=== PATIENT | male | born 1985 | race African-American/Black ===

== ENCOUNTER 2016-12-04 11:50 | Day surgery (SDC) | payer MEDICAID ==
[~2016-12-04] VITALS: Ht 180.3 cm; Wt 83.9 kg
[~2016-12-04 11:50] MED LIST: ACETAMINOPHEN325 MG PO; ADVIL200 MG PO; ASPIRIN EC81 M1 PO; BACTRIM DS TABL1 TAB PO; BENADRYL50 MG PO; CEFAZOLIN2 GM/50 ML IV; CELEXA20 MG PO; COLACE100 MG PO; DILAUD1MGAMP IV; DILAUDID2 MG PO; DILAUDID8 MG PO; DOXYCYCLINE HY100 M2 PO; ELIQUIS2.5 MG PO; FOLIC ACID1 MG PO; HEPARIN SOD5000 U/ML IV; HYDROXYUREA500 MG PO; KEFLEX500 MG PO; LEVAQUIN750 MG PO; LISINOPRIL5 MG NG; LISINOPRIL5 MG PO; MILK OF MAGNESI30 ML GT; MOBIC7.5 MG PO; MS CONTIN30 MG PO; NALOXONE HC0.4 MG/M2 IV; NEURONTIN 300300 MG PO; NYSTATIN15 GM TOPICAL; OXYCODONE HCL10 MG PO; PERCOCET 10/3251 TA1 PO; REMERON15 MG PO; RESTORIL15 MG; RESTORIL15 MG PO; RIFADIN300 MG PO; ROCEPHIN 2 GM/D52 G1 IV; SALINE FLUSH10 ML IV; SENNA8.6 MG PO; TOPROL XL100 MG PO; TOPROL XL50 MG PO; ULTRAM50 MG PO; VANCOMYCIN 1 GM/1 G1 IV; VIBRAMYCIN 100100 MG PO; ZOFRAN4 MG PO; ZOSYN 3.3753.375 G1 IV; [UNRECOGNIZED DRUG - OTHER]
[2016-12-04 13:40] VITALS: BP 135/78; Ht 180.3 cm; Wt 83.9 kg
[2016-12-04 14:21] LABS: BASOPHILS 0.3 % (0.0-2.0); EOSINOPHILS 1.5 % (0-7); HEMATOCRIT 31.5 % (42.0-54.0); HEMOGLOBIN 10.5 g/dL (13.5-17.5); IMMATURE GRANULOCYTES 0.4 % (0-5); LYMPHOCYTES 28.3 % (15-50); MCH 32.5 pg (26.0-34.0); MCHC 33.3 g/dL (31.0-37.0); MCV 97.5 fL (80.0-100.0); MONOCYTES 20.7 % (2-11); NEUTROPHILS 48.8 % (40-80); PLATELET COUNT 243 10x3/uL (130-400); RBC 3.23 10x6/uL (4.20-6.10); RDW 16.1 % (11.5-14.5); WBC 8.9 10x3/uL (4.8-10.8)
[2016-12-04] MEDS ORDERED: DILAUDID4 MG PO (15:48)
--- NOTE | 2016-12-04 17:40 | NUR ---
AMBULATED TO BATHROOM TO VOID LARGE AMOUNT IN TOILET, RIGHT WRIST PIV DC'D WITH TIP INTACT, PATIENT DRESSING IN PERSONAL CLOTHING
--- NOTE | 2016-12-04 18:00 | NUR ---
DISCHARGE INSTRUCTIONS REVIEWED WITH PATIENT. DISCHARGED HOME VIA WHEELCHAIR TO PRIVATE VEHICLE WITH MOTHER
--- NOTE | 2016-12-18 18:23 | OP ---
PATIENT NAME: MARVEL KHAN MEDICAL RECORD: [id number] :81 LOCATION:D.OPS ADMISSION DATE: SURGEON: MARY WILLINGHAM MD DATE OF OPERATION: 12/04/2016 PREOPERATIVE DIAGNOSIS: Open wound of the left hip. POSTOPERATIVE DIAGNOSIS: Open wound of the left hip. PROCEDURE: 1. Excisional debridement of open wound of the left hip to include skin, subcutaneous tissue, portions of fascia as well as a retained Ethibond. 2. Wound VAC application. OPERATIVE SUMMARY IN DETAIL: After obtaining the appropriate preoperative orthopedic surgery consents as well as anesthetic consultation, evaluation and clearance, the patient was brought to the operating room and placed on the operating table in supine position. After adequate general laryngeal mask was administered, the patient was placed in a right lateral decubitus position. All pressure points were well padded to include down leg peroneal nerve pad as well as axillary roll. The hip was prepped and draped in routine sterile fashion. The area of the hip was cultured and curettaged as well as a scalpel was used for excisional debridement of the deep portions as listed above. At the very base of the wound was found a 5-0 Ethibond. This was removed in its entirety. Further curettage was followed by irrigation. Wound VAC was then molded in place at 125 mm of continuous suction under medium intensity. The patient was awakened, taken to recovery room in stable condition. All final needle and sponge counts were correct. TRANSINT:[id number] Voice Confirmation ID: [id number] DOCUMENT ID: [id number] MARY WILLINGHAM MD at 1823 CC: [id number] DICTATION DATE: 12/14/16 1436 MANAGEMENT DEPARTMENT CHAIR: 12/14/16 1655 [facility] 12/04/16 [place] [address]
== END 2016-12-04 18:00 | disposition home or self-care (01) ==
LOC: D.OPS 11:50 → D.PAN 14:30 → D.OPS 18:00
PROVIDERS: Anesthesiology
DX: S71.002A Unspecified open wound, left hip, initial encounter (principal)

== ENCOUNTER → 2017-02-13 07:16 | Outpatient (CLI) | payer MEDICAID ==
[2016-12-04 13:40] VITALS: BMI 25.8
[~2017-02-13 07:16] MED LIST changes: +DILAUDID4 MG PO
[2017-02-13 07:54] LABS: BASOPHILS 0.7 % (0.0-2.0); EOSINOPHILS 3.3 % (0-7); HEMATOCRIT 32.2 % (42.0-54.0); LYMPHOCYTES 26.7 % (15-50); MCHC 34.2 g/dL (31.0-37.0); MCV 99.4 fL (80.0-100.0); MEAN PLATELET VOLUME 8.7 fL (7.4-10.4); NEUTROPHILS 49.3 % (40-80); PLATELET COUNT 340 10x3/uL (130-400); RBC 3.24 10x6/uL (4.20-6.10); RDW 15.4 % (11.5-14.5); WBC 12.3 10x3/uL (4.8-10.8)
== END | disposition home or self-care (01) ==
LOC: D.LAB 07:16
PROVIDERS: Orthopaedic Surgery
DX: S71.002A Unspecified open wound, left hip, initial encounter (principal); D57.1 Sickle-cell disease without crisis

== ENCOUNTER → 2017-09-26 17:00 | Outpatient (CLI) | payer MEDICAID ==
[2016-12-04 13:40] VITALS: BMI 25.8
[2017-09-26 19:00] LABS: CALC OSMOLALITY 276 mosm/kg (275-300); CALCIUM 8.5 mg/dL (8.5-10.1); CARBON DIOXIDE 22.4 mmol/L (21.0-32.0); CHLORIDE - SERUM 104 mmol/L (98-107); CREATININE - SERUM 0.8 mg/dL (0.6-1.3); GLUCOSE 86 mg/dL (74-106); POTASSIUM - SERUM 4.2 mmol/L (3.5-5.1); SODIUM 139 mmol/L (136-145); UREA NITROGEN 13 mg/dL (7-18); eGFR NON AFRICAN AMERICAN > 90 mL/min (90-120)
[2017-09-29 12:07] LABS: BASOPHILS 0.2 % (0-2); EOSINOPHILS 0.8 % (0-7); HEMATOCRIT 33.3 % (42.0-54.0); HEMOGLOBIN 11.4 g/dL (13.5-17.5); IMMATURE GRANULOCYTES 0.6 % (0-5); LYMPHOCYTES 19.4 % (15-50); MCH 32.4 pg (26.0-34.0); MCHC 34.2 g/dL (31.0-37.0); MCV 94.6 fL (80.0-100.0); MEAN PLATELET VOLUME 8.4 fL (7.4-10.4); MONOCYTES 13.9 % (2-11); NEUTROPHILS 65.1 % (40-80); PLATELET COUNT 392 10x3/uL (130-400); RBC 3.52 10x6/uL (4.20-6.10); RDW 17.6 % (11.5-14.5); WBC 12.3 10x3/uL (4.8-10.8)
== END | disposition home or self-care (01) ==
LOC: D.LABREF 17:00
PROVIDERS: Student in an Organized Health Care Education/Training Program
DX: Z51.81 Encounter for therapeutic drug level monitoring (principal); Z79.2 Long term (current) use of antibiotics; T84.59XD Infection and inflammatory reaction due to other internal joint prosthesis, subsequent encounter

== ENCOUNTER → 2018-07-02 09:05 | Outpatient (CLI) | payer MEDICAID ==
[2016-12-04 13:40] VITALS: BMI 25.8
--- NOTE | ~2018-07-02 | HEMODYNAMI ---
PATIENT:MARVEL KHAN MEDICAL RECORD: [id number] : 81 [id number] ADMISSION DATE: 07/02/18 Generatedon:07/02/201811:59 Patient name: MARVEL KHAN Patient #: [id number] SSN: : 1985 Date of study: 07/02/2018 Page: Of Hemodynamic Procedure Report Patient Data Patient Demographics Procedure consent was obtained First Name: MARVEL Gender: Male Last Name: ERIN : 1985 Middle Initial: DANIELA Age: 33 year(s) Patient #: [id number] Race: Black Additional ID: [id number] Contact details [address]: [address] [place] [address] [place] State: [place] City: [place] Zip code: [address] Past Medical History Allergies Allergen Reaction Date Comments Reported Morphine 07/02/2018 Admission Admission Data Admission Date: 07/02/2018 Admission Time: 9:05 Procedure Procedure Types Cath Procedure Peripheral Cath Diagnostic Procedure Miscellaneous Procedure Description Procedure Date Procedure Date: 07/02/2018 Procedure Start Time: 11:43 Procedure Staff Name Function Abdi Alvarado MD Performing Physician Braden Ribera RT Monitor Lelia Curry RT Scrub Vale Rivas RN Nurse Hemodynamics Rest Pre Cath Intra NCS Post Cath Procedure Log Time Note 11:27:50 Braden Ribera RT (R) (CV) sent for patient. Start room use. 11:27:58 Time tracking: Regular hours (M-F 7:00 - 5:00) 11:28:04 Patient received from Other to IR Alert and oriented. Tansferred to table in Supine position. 11:28:06 Correct patient and procedure confirmed by team. 11:28:08 Signed procedure consent form obtained from patient. 11:28:11 Pre-procedure instructions explained to patient. 11:28:11 Pre-op teaching completed and patient verbalized understanding. 11:28:22 Patient allergic to Morphine 11:28:36 PT.STATES NO BLOOD THINNERS 11:43:02 Physician arrived 11:43:02 --------ALL STOP TIME OUT------ 11:43:03 Final Timeout: patient, procedure, and site verified with staff and physician. All members of the team are in agreement. 11:43:05 Left groin site verified by team. 11:43:11 Sedation plan: Local Anesthetic Medication:Lidocaine 11:43:20 Procedure started. 11:43:21 Full Disclosure recording started 11:43:27 Local anesthetic to left HIP AREA with Lidocaine 1% by Abdi Alvarado MD.INITIAL ACCESS ONLY 11:58:10 Procedure ended.(Physican Out) 11:58:35 BANDAIDE APPLIED TO LT.HIP AREA 11:59:33 PT.TOLERATED PROCEDURE GOOD PT.GIVEN VERBAL INSTRUCTIONS AND SENT HOME Signature Audit [place] Stage Time Signature Unsigned Intra-Procedure 07/02/2018 Braden 11:59:50 AM Bacilio RT (R) (CV) Signatures Monitor : Braden Signature : Bacilio RT Date : Time : [facility] [address] [place] [address]
[2018-07-02 09:31] LABS: BASOPHILS 0.4 % (0-2); EOSINOPHILS 2.3 % (0-7); HEMATOCRIT 32.2 % (42.0-54.0); IMMATURE GRANULOCYTES 0.8 % (0-5); LYMPHOCYTES 23.8 % (15-50); MCH 30.5 pg (26.0-34.0); MCHC 34.2 g/dL (31.0-37.0); MCV 89.2 fL (80.0-100.0); MEAN PLATELET VOLUME 8.1 fL (7.4-10.4); MONOCYTES 16.5 % (2-11); NEUTROPHILS 56.2 % (40-80); PLATELET COUNT 332 10x3/uL (130-400); RBC 3.61 10x6/uL (4.20-6.10); RDW 16.3 % (11.5-14.5); WBC 10.3 10x3/uL (4.8-10.8)
[2018-07-02 10:49] LABS: ERYTHROCYTE SEDIMENTATION RATE 14 mm/hr (0-15)
[2018-07-02 13:02] LABS: PROTEIN - BODY FLUID 0.2 G/DL
[2018-07-02 14:10] LABS: MACROPHAGES BF 5 %; NEUT - BF 82 %
== END | disposition home or self-care (01) ==
LOC: D.SP 09:05 → D.LAB 09:45 → D.RAD 10:00
PROVIDERS: Clinical Nurse Specialist Family Health
DX: T84.84XA Pain due to internal orthopedic prosthetic devices, implants and grafts, initial encounter (principal); Z01.812 Encounter for preprocedural laboratory examination

== ENCOUNTER → 2018-07-03 09:12 | Outpatient (CLI) | payer MEDICAID ==
[2016-12-04 13:40] VITALS: BMI 25.8
== END | disposition home or self-care (01) ==
LOC: D.NM 09:12
DX: M25.552 Pain in left hip (principal)

== ENCOUNTER → 2018-12-27 14:31 | Outpatient (CLI) | payer OTHER ==
[2016-12-04 13:40] VITALS: BMI 25.8
[~2018-12-27 14:31] MED LIST changes: +HYDROCODON-ACE1 EA10 PO; +PERCOCET 10-321 EAC1 PO; +SULFAMETHOXAZOL1 TA3 PO
[2018-12-27 15:15] LABS: HEMOGLOBIN 10.6 g/dL (13.5-17.5); MCH 33.7 pg (26.0-34.0); MCHC 34.2 g/dL (31.0-37.0); MCV 98.4 fL (80.0-100.0); MEAN PLATELET VOLUME 8.9 fL (7.4-10.4); PLATELET COUNT 346 10x3/uL (130-400); RBC 3.15 10x6/uL (4.20-6.10); RDW 17.3 % (11.5-14.5); WBC 8.9 10x3/uL (4.8-10.8)
[2018-12-27 15:42] LABS: EOSINOPHILS 3 % (0-7); LYMPHOCYTES 21 % (15-50); MONOCYTES 5 % (2-11); NEUTROPHILS 71 % (40-80); PLATELET ESTIMATE NORMAL; PLATELET MORPHOLOGY NORMAL PLT MORPH
[2018-12-27 16:19] LABS: ERYTHROCYTE SEDIMENTATION RATE 15 mm/hr (0-15)
== END | disposition home or self-care (01) ==
LOC: D.LABREF 14:31
PROVIDERS: Orthopaedic Surgery
DX: M25.552 Pain in left hip (principal)

== ENCOUNTER 2019-01-09 17:55 | Inpatient (IN) | payer OTHER ==
[2019-01-07 10:02] LABS: BASOPHILS 0.5 % (0-2); EOSINOPHILS 0.9 % (0-7); HEMATOCRIT 33.9 % (42.0-54.0); HEMOGLOBIN 11.7 g/dL (13.5-17.5); IMMATURE GRANULOCYTES 0.7 % (0-5); LYMPHOCYTES 23.4 % (15-50); MCH 34.1 pg (26.0-34.0); MCHC 34.5 g/dL (31.0-37.0); MCV 98.8 fL (80.0-100.0); MEAN PLATELET VOLUME 8.4 fL (7.4-10.4); MONOCYTES 19.5 % (2-11); PLATELET COUNT 399 10x3/uL (130-400); RBC 3.43 10x6/uL (4.20-6.10); RDW 16.2 % (11.5-14.5); WBC 8.7 10x3/uL (4.8-10.8)
[~2019-01-09] VITALS: Ht 180.3 cm; Wt 84.1 kg
[2019-01-09 13:53] VITALS: BP 101/60; BMI 25.8
[~2019-01-09 17:55] MED LIST changes: -PERCOCET 10-321 EAC1 PO; -SULFAMETHOXAZOL1 TA3 PO
[2019-01-09 18:38] VITALS: BP 107/56; Ht 180.3 cm; Wt 84.1 kg
[2019-01-09 21:11] VITALS: BP 110/65
[2019-01-10] VITALS (7 sets, daily range): BP systolic 100–124; BP diastolic 48–61
[2019-01-10 06:02] LABS: HEMATOCRIT 30.2 % (42.0-54.0); HEMOGLOBIN 10.7 g/dL (13.5-17.5)
[2019-01-11 05:16] VITALS: BP 97/50
[2019-01-11 06:52] LABS: HEMATOCRIT 30.8 % (42.0-54.0); HEMOGLOBIN 10.6 g/dL (13.5-17.5)
[2019-01-11 09:00] VITALS: BP 99/64
[2019-01-11 13:40] VITALS: BP 104/60
[2019-01-11 13:52] LABS: BASOPHILS 0.4 % (0-2); EOSINOPHILS 0.8 % (0-7); HEMATOCRIT 31.9 % (42.0-54.0); IMMATURE GRANULOCYTES 0.5 % (0-5); LYMPHOCYTES 37.4 % (15-50); MCH 34.1 pg (26.0-34.0); MCHC 34.5 g/dL (31.0-37.0); MCV 98.8 fL (80.0-100.0); MEAN PLATELET VOLUME 8.8 fL (7.4-10.4); MONOCYTES 17.8 % (2-11); NEUTROPHILS 43.1 % (40-80); PLATELET COUNT 333 10x3/uL (130-400); RBC 3.23 10x6/uL (4.20-6.10); RDW 16.2 % (11.5-14.5); WBC 10.1 10x3/uL (4.8-10.8)
[2019-01-11 18:20] VITALS: BP 110/64
[2019-01-11 21:42] VITALS: BP 103/46
[2019-01-12 01:10] VITALS: BP 101/56
[2019-01-12 04:46] VITALS: BP 106/65
[2019-01-12 07:01] LABS: HEMATOCRIT 30.3 % (42.0-54.0); HEMOGLOBIN 10.4 g/dL (13.5-17.5)
[2019-01-12 08:08] LABS: ERYTHROCYTE SEDIMENTATION RATE 10 mm/hr (0-15)
[2019-01-12 09:40] VITALS: BP 108/67
[2019-01-12 14:15] VITALS: BP 124/81
[2019-01-12 18:54] VITALS: BP 128/51
[2019-01-12 20:00] VITALS: BP 115/66
[2019-01-13] VITALS: BP 102/60
[2019-01-13 04:00] VITALS: BP 115/66
[2019-01-13] MEDS ORDERED: PERCOCET 10-321 EAC1 PO (08:33)
[2019-01-13 08:44] VITALS: BP 99/55
--- NOTE | 2019-01-13 10:47 | OP ---
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 POSTOPERATIVE DIAGNOSIS: Left total hip arthroplasty infection. PROCEDURES: 1. Excisional debridement to include skin, subcutaneous tissue, portions of fat, fascia, muscle and bone. 2. Application of wound VAC. SURGEON: Mary Willingham MD ANESTHESIA: General. INTRAOPERATIVE COMPLICATIONS: Essentially none. SUMMARY OF PATHOLOGIC FINDINGS: While hopes were initial that this was merely a stitch infection that had crept up after several years of infection free ambulation. Unfortunately, dissection showed that the infection was from the hip itself and was on the porous coating of the rest mod hip. The hip was not removed and a wound VAC was placed. It is of note that bone was very ingrown into the prosthesis. The prosthesis was very stable and of note, previous bone scan as well as inflammatory markers were essentially normal for this sickle cell patient. OPERATIVE SUMMARY IN DETAIL: After obtaining the appropriate preoperative orthopedic surgery consent as well as anesthetic consultation, evaluation and clearance, the patient was brought to the operating room and placed on the operating table in supine position. After general laryngeal mask airway was administered, the patient was placed in a right lateral decubitus position. All pressure points were well padded to include down leg peroneal pad as well as axillary roll. The patient was held firmly to the operating table using the vacuum pack suction system. Left lower extremity and hip were then prepped and draped in routine sterile fashion. Incision was made over the area in question with immediate pus noted. This was cultured and sent for Gram stain, aerobic and anaerobic culture. Elliptical incision was taken down in hopes to find an Ethibond stitch that might be the source of the infection; however, upon further deep dissection, the proximal body of the rest mod Jassi hip was noted and there was definitely purulence next to it. Further dissection was carried out, so that the pus could be further expressed and in the end this was contiguous with the hip capsule itself. Pulsatile lavage irrigation was carried out. Both scalpel curettage and rongeur debridement was carried out. Lavage was also done infracapsular through the small portal at the superior aspect of the wound. Suction could be ascertained all the way down to the patient's polyethylene. This was copiously irrigated in hopes for debulking infection. Having completed this, the area was dried neatly and a wound VAC was applied at 125 mm of continuous suction on medium intensity. The patient was awakened, taken to recovery room in stable condition. It is of note that this patient has a very good stability at this time. He has a history of 2 recurrent infections now and the last time this was treated nicely for approximately 3-4 years without any OPERATIVE REPORT [id number] MARVEL KHAN untoward events. We will likely try to suppress this very young man with a very bad sickle cell disease. We will have that discussion with him after this operative intervention. TRANSINT:[id number] Voice Confirmation ID: [id number] DOCUMENT ID: [id number] MAULIK REINA, MARY ALMEIDA at 1047 CC: [id number] DICTATION DATE: 01/10/19935 PASTEURIZING MACHINE OPERATOR: 01/10/19 1010 ADM IN [facility] [address] [place] [address]
[2019-01-13 13:16] VITALS: BP 98/54
[2019-01-13 17:29] VITALS: BP 110/62
[2019-01-13 20:00] VITALS: BP 119/64
[2019-01-14] VITALS: BP 105/58
[2019-01-14 04:00] VITALS: BP 106/56
[2019-01-14] MEDS ORDERED: SULFAMETHOXAZOL1 TA3 PO (08:23)
[2019-01-14] MEDS ORDERED: DOXYCYCLINE HY100 M2 PO (08:54)
[2019-01-14 09:23] VITALS: BP 106/58
--- NOTE | 2019-01-14 09:31 | MORECARE ---
CASE MANAGEMENT DISCHARGE SUMMARY PATIENT: MARVEL KHAN UNIT: [id number] ADM DATE: 01/09/19 AGE: 33 : [birth year] SEX: M ROOM/BED: D.2205 AUTHOR: RONALD MONTES PHYSICIAN: REFERRING PHYSICIAN: MARY WILLINGHAM MD DATE OF SERVICE: 01/14/19 Discharge Plan Patient Name: MARVEL KHAN Facility: [facility]:[place] : 1985 Planned Disposition: Home Health Service Anticipated Discharge Date: Discharge Date: Expected LOS: Initial Reviewer: [email or web address] Initial Review Date: 01/09/2019 Generated: 01/14/19 10:30 am DCPIA - Discharge Planning Initial Assessment Updated by [email or web address]: Shivani Ruff on 01/14/19 9:30 am * Is the patient Alert and Oriented? Yes * How many steps to enter\exit or inside your home? * PCP Santiago * Pharmacy [facility] [address] * Preadmission Environment Home with Family * ADLs Independent * Equipment None * List name and contact numbers for known caregivers / representatives who currently or will assist patient after discharge: [facility] [phone] * Verbal permission to speak to the caregivers and representatives has been obtained from the patient. N/A * Community resources currently utilized None * Additional services required to return to the preadmission environment? Yes * Can the patient safely return to the preadmission environment? Yes * Has this patient been hospitalized within the prior 30 days at any hospital? No External Providers External Provider: [facility] [employer] Next Contact Date: Service Request Date: Service Type: Resolution: Reviewer: Comments: Patient Name: MARVEL KHAN Page [phone] at 0931 All edits/amendments must be made on the electronic document DICTATION DATE: 01/14/19929 MATERIAL PLANNER: ADELA 01/14/19929 RPT#: [id number] DC DATE: STATUS: ADM IN [address] [place] [address] END OF REPORT
--- NOTE | 2019-01-14 09:38 | MORECARE ---
CASE MANAGEMENT DISCHARGE SUMMARY PATIENT: MARVEL KHAN UNIT: [id number] ADM DATE: 01/09/19 AGE: 33 : [birth year] SEX: M ROOM/BED: D.2205 AUTHOR: SIMON,DOC PHYSICIAN: REFERRING PHYSICIAN: MARY WILLINGHAM MD DATE OF SERVICE: 01/14/19 Discharge Plan Patient Name: MARVEL KHAN Facility: [facility]:[place] : 1985 Planned Disposition: Home Health Service Anticipated Discharge Date: Discharge Date: Expected LOS: Initial Reviewer: [email or web address] Initial Review Date: 01/09/2019 Generated: 01/14/19 10:38 am Comments DCP- Discharge Planning Updated by [email or web address]: Shivani Ruff on 01/14/19 8:[address] Patient Name: MARVEL KHAN Admission Status: Elective Accout number: [id number] Admission Date: 01-09-2019 : 1985 Admission Diagnosis:INFCT FOL A PROC, SUPERFIC INCISIONAL SURGICAL SITE, IN Attending: MARY WILLINGHAM Current LOS: 5 Anticipated DC Date: Planned Disposition: Home Health Service Primary Insurance: [facility] Discharge Planning Comments: CM met with patient to complete initial dc planning assessment. CM educated patient on the CM role and verbal consent given by patient to complete assessment. Patient lives at home with his mother where he is independent with his care. At discharge patient plans to return home and feels this is a safe discharge. His mom will be the one to drive him home. CM discussed availability of home health, rehab services, and medical equipment. He will be discharging home with a [facility] home wound vac and will need dressing changes MWF esmer with 1)[facility] 2) [facility] . [facility] is full till and [facility] will accept pending insurance. I spoke with Emy at [facility] will fax over referral. Patient denied any other known discharge needs at this time. CM will continue to follow and will assist as needed with dc plans/needs. [employer]: Shivani Ruff DCPIA - Discharge Planning Initial Assessment Updated by [email or web address]: Shivani Ruff on 01/14/19 9:30 am * Is the patient Alert and Oriented? Yes * How many steps to enter\exit or inside your home? * PCP Santiago * Pharmacy [facility] [address] * Preadmission Environment Home with Family * ADLs Independent * Equipment None * List name and contact numbers for known caregivers / representatives who currently or will assist patient after discharge: ARUN [phone] * Verbal permission to speak to the caregivers and representatives has been obtained from the patient. N/A * Community resources currently utilized None * Additional services required to return to the preadmission environment? Yes * Can the patient safely return to the preadmission environment? Yes * Has this patient been hospitalized within the prior 30 days at any hospital? No External Providers External Provider: [facility] Next Contact Date: Service Request Date: Service Type: Resolution: Reviewer: Comments: Last DP export: 01/14/19 8:30 a Patient Name: MARVEL KHAN Page [phone] at 0938 All edits/amendments must be made on the electronic document DICTATION DATE: 01/14/19936 CONTRACT AGENT: ADELA 01/14/19936 RPT#: [id number] DC DATE: STATUS: ADM IN [facility] [address] [place] [address] END OF REPORT
[2019-01-14 14:21] VITALS: BP 105/56
--- NOTE | 2019-01-14 17:06 | MORECARE ---
CASE MANAGEMENT DISCHARGE SUMMARY PATIENT: MARVEL KHAN UNIT: [id number] ADM DATE: 01/09/19 AGE: 33 : 83 SEX: M ROOM/BED: D.2205 AUTHOR: SIMON,DOC PHYSICIAN: REFERRING PHYSICIAN: MARY WILLINGHAM MD DATE OF SERVICE: 01/14/19 Discharge Plan Patient Name: MARVEL KHAN Facility: [facility]:[place] : 1985 Planned Disposition: Home Health Service Anticipated Discharge Date: Discharge Date: 01/14/2019 Expected LOS: 0 Initial Reviewer: [email or web address] Initial Review Date: 01/09/2019 Generated: 01/14/19 6:05 pm Comments DCP- Discharge Planning Updated by [email or web address]: Shivani Ruff on 01/14/19 8:[address] Patient Name: MARVEL KHAN Admission Status: Elective Accout number: [id number] Admission Date: 01-09-2019 : 1985 Admission Diagnosis:INFCT FOL A PROC, SUPERFIC INCISIONAL SURGICAL SITE, IN Attending: MARY WILLINGHAM Current LOS: 5 Anticipated DC Date: Planned Disposition: Home Health Service Primary Insurance: [facility] Discharge Planning Comments: CM met with patient to complete initial dc planning assessment. CM educated patient on the CM role and verbal consent given by patient to complete assessment. Patient lives at home with his mother where he is independent with his care. At discharge patient plans to return home and feels this is a safe discharge. His mom will be the one to drive him home. CM discussed availability of home health, rehab services, and medical equipment. He will be discharging home with a [facility] home wound vac and will need dressing changes MWF esmer with 1)[facility] 2) [facility] . [facility] is full till and [facility] will accept pending insurance. I spoke with Emy at [facility] will fax over referral. Patient denied any other known discharge needs at this time. CM will continue to follow and will assist as needed with dc plans/needs. Nipple Threader: Shivani Ruff DCPIA - Discharge Planning Initial Assessment Updated by [email or web address]: Shivani Ruff on 01/14/19 9:30 am * Is the patient Alert and Oriented? Yes * How many steps to enter\exit or inside your home? * PCP Santiago * Pharmacy [facility] [address] * Preadmission Environment Home with Family * ADLs Independent * Equipment None * List name and contact numbers for known caregivers / representatives who currently or will assist patient after discharge: [employer] [phone] * Verbal permission to speak to the caregivers and representatives has been obtained from the patient. N/A * Community resources currently utilized None * Additional services required to return to the preadmission environment? Yes * Can the patient safely return to the preadmission environment? Yes * Has this patient been hospitalized within the prior 30 days at any hospital? No Last DP export: 01/14/19 8:38 a Patient Name: MARVEL KHAN Page [phone] at 1706 All edits/amendments must be made on the electronic document DICTATION DATE: 01/14/191704 WHEEL SHOP SUPERVISOR: ADELA 01/14/191704 RPT#: [id number] DC DATE:01/14/19 STATUS: DIS IN [facility] [address] [place] [address] END OF REPORT
== END 2019-01-14 14:52 | disposition home health service (06) | DRG 482 ==
LOC: D.OPS 17:55 → D.MS 17:57
PROVIDERS: Anesthesiology; ADMIT Orthopaedic Surgery
PROC: 0SBB0ZZ Excision of Left Hip Joint, Open Approach (ICD-10-PCS; 2019-01-09)
PROC: 0J9M0ZZ Drainage of Left Upper Leg Subcutaneous Tissue and Fascia, Open Approach (ICD-10-PCS; principal; 2019-01-09 14:00)
DX: T84.52XA Infection and inflammatory reaction due to internal left hip prosthesis, initial encounter (principal); I10 Essential (primary) hypertension; D57.1 Sickle-cell disease without crisis

== ENCOUNTER 2019-02-28 21:11 | Emergency (ER) | payer OTHER ==
[2019-01-09 18:38] VITALS: BMI 25.8
[~2019-02-28 21:11] MED LIST changes: +PERCOCET 10-321 EAC1 PO; +SULFAMETHOXAZOL1 TA3 PO
== END 2019-02-28 21:15 | disposition left against medical advice (07) ==
LOC: D.ER 21:11
DX: D57.00 Hb-SS disease with crisis, unspecified (principal)

== ENCOUNTER → 2019-04-01 19:25 | Outpatient (CLI) | payer MEDICAID ==
[2019-01-09 18:38] VITALS: BMI 25.8
[2019-04-01 20:09] LABS: HEMATOCRIT 26.7 % (42.0-54.0); HEMOGLOBIN 9.1 g/dL (13.5-17.5); MCH 33.6 pg (26.0-34.0); MCHC 34.1 g/dL (31.0-37.0); MCV 98.5 fL (80.0-100.0); MEAN PLATELET VOLUME 8.3 fL (7.4-10.4); PLATELET COUNT 365 10x3/uL (130-400); RBC 2.71 10x6/uL (4.20-6.10); RDW 16.7 % (11.5-14.5); WBC 8.5 10x3/uL (4.8-10.8)
[2019-04-01 21:05] LABS: ERYTHROCYTE SEDIMENTATION RATE 23 mm/hr (0-15)
[2019-04-01 21:14] LABS: EOSINOPHILS 1 % (0-7); LYMPHOCYTES 56 % (15-50); MONOCYTES 6 % (2-11); NEUTROPHILS 37 % (40-80); PLATELET ESTIMATE NORMAL
== END | disposition home or self-care (01) ==
LOC: D.LAB 19:25
PROVIDERS: ATTEND Orthopaedic Surgery
DX: M25.552 Pain in left hip (principal)

== ENCOUNTER 2019-05-05 10:25 | Inpatient (IN) | payer MEDICAID ==
[2019-05-02 09:08] LABS: BASOPHILS 0.4 % (0-2); EOSINOPHILS 0.9 % (0-7); HEMATOCRIT 26.6 % (42.0-54.0); IMMATURE GRANULOCYTES 0.4 % (0-5); LYMPHOCYTES 18.7 % (15-50); MCH 31.9 pg (26.0-34.0); MCHC 33.8 g/dL (31.0-37.0); MCV 94.3 fL (80.0-100.0); MEAN PLATELET VOLUME 7.7 fL (7.4-10.4); MONOCYTES 18.2 % (2-11); NEUTROPHILS 61.4 % (40-80); PLATELET COUNT 438 10x3/uL (130-400); RBC 2.82 10x6/uL (4.20-6.10); RDW 18.2 % (11.5-14.5); WBC 7.8 10x3/uL (4.8-10.8)
[2019-05-02 09:14] LABS: APPEARANCE CLEAR (CLEAR); BILIRUBIN NEGATIVE (NEGATIVE); COLOR YELLOW (YELLOW); GLUCOSE NEGATIVE (NEGATIVE); KETONE NEGATIVE (NEGATIVE); NITRITE NEGATIVE (NEGATIVE); PROTEIN NEGATIVE (NEGATIVE); SPECIFIC GRAVITY 1.015 (1.005-1.020)
[2019-05-02 09:46] LABS: PLATELET ESTIMATE INCREASED
[2019-05-02 09:48] LABS: ACANTHOCYTES OCC; ANISOCYTOSIS 1+; POIKILOCYTOSIS OCC; POLYCHROMASIA OCC; SCHISTOCYTES OCC; SMUDGE CELLS OCC
[2019-05-05 11:15] VITALS: BP 105/64; BMI 25.1
--- NOTE | 2019-05-05 13:11 | NUR ---
AFTER SUICIDIE RISK SCREENING, PSYCH CONSULT WAS RECOMMENDED. WHEAT COMBINE DRIVER WAS CALLED AND INFORMED OF SITUATION. PT'S FAMILY AT BEDSIDE. PT'S ROOM DOOR IS OPEN. PT DENIES NEEDS/PAIN AT THIS TIME.
--- NOTE | 2019-05-05 13:24 | NUR ---
PT ASSESSED AND ASSESSMENT SHOWED A LOW SCORE. PT HAS HAD FLEETING THOUGHT OF SUICIDE BUT HAS NEVER ACTING ON THEM. PT HAS FRUSTRATION OVER HAVING TO HAVE SURGERY AGAIN AND SOME FINANCIAL ISSUES. DR. KHAN NOTIFIED AND PT IS A LOW SCORE. RESOURCES GIVEN AND REVIEWED WITH THE PT AND VERBALIZED UNDERSTANDING.
[2019-05-05 17:33] VITALS: BP 132/92
[2019-05-05 18:21] VITALS: BMI 21.9
[2019-05-05 20:00] VITALS: BP 93/46
--- NOTE | 2019-05-05 20:24 | NUR ---
REC'D IN BED TALKING ON PHONE FAMILY AT BEDSIDE. DRSG. AT DRY AND INTACT TO LEFT HIP WITH WD. VAC INTACT. GOOD PEDAL PULSE. WILL CONTINUE TO MONITOR FOR ANY CHGES.IN NEUROVASCULAR STATUS AND FOLLOW CURRENT PLAN OF CARE.
--- NOTE | 2019-05-06 03:16 | NUR ---
SUICIDE SCREENING COMPLETED AND ASSESSMENT HAS BEEN COMPLETED ALREADY. PT IS LOW RISK AND INFORMATION HAS BEEN GIVEN PREVIOUSLY.
--- NOTE | 2019-05-06 03:38 | NUR ---
I have reviewed this patient and I concur with the Shift Assessment completed by the Licensed Practical Nurse today this shift.
[2019-05-06 05:44] LABS: HEMATOCRIT 25.5 % (42.0-54.0); HEMOGLOBIN 8.6 g/dL (13.5-17.5); MCHC 33.7 g/dL (31.0-37.0); MCV 94.8 fL (80.0-100.0); MEAN PLATELET VOLUME 8.2 fL (7.4-10.4); RBC 2.69 10x6/uL (4.20-6.10); RDW 18.5 % (11.5-14.5); WBC 8.1 10x3/uL (4.8-10.8)
[2019-05-06 06:26] VITALS: BP 97/41
--- NOTE | 2019-05-06 07:29 | NUR ---
AWAKENS INT. FAMILY IN ROOM. PT IS WITHOUT DISTRESS.
--- NOTE | 2019-05-06 07:51 | NUR ---
LEFT UNIT VIA WHEELCHAIR WITH [facility] FOR TRANSPORT HOME
--- NOTE | 2019-05-06 09:08 | NUR ---
ASSESSMENT PER FLOW SHEET. PT IS WITHOUT DISTRESS.PAIN MEDS ORDERD PER JAN. INSTRUCTED CALL LIGHT USE.
[2019-05-06 09:30] VITALS: BP 101/66
--- NOTE | 2019-05-06 12:15 | NUR ---
VISITING WITH FAMILY. PT IS WITHOUT DISTRESS.MONITOR FOR NEEDS
--- NOTE | 2019-05-06 12:30 | NUR ---
WILL HANG IV ABX AT 1530,LAST DOSE AT 0330
[2019-05-06 12:49] VITALS: BP 104/45
--- NOTE | 2019-05-06 13:19 | NUR ---
Late entry: 05/05/[address] Grijalva with setting up veraflo therapy. Dakins 1/4 strength solution (12cc) instilling in wound on hip, soak time 10min., fluid removed and vac therapy at -125mmhg mod continuous for 3.5 hours. Then repeat. 05/06/19 0815: Dakins instilling, no leaks. Pt tolerating well. Wound care continues to monitor.
--- NOTE | 2019-05-06 15:00 | OP ---
PATIENT NAME: GIORGI KHAN MEDICAL RECORD: [id number] :[birth year] LOCATION:D.MS [facility]2220 ADMISSION DATE:05/06/19 SURGEON: MAULIK REINA, MARY ALMEIDA DATE OF OPERATION: PREOPERATIVE DIAGNOSES: 1. Open continuous draining wound of the left hip. 2. Chronic left hip infection. 3. Chronic sickle cell anemia. POSTOPERATIVE DIAGNOSES: 1. Open continuous draining wound of the left hip. 2. Chronic left hip infection. 3. Chronic sickle cell anemia. PROCEDURES: 1. Excisional debridement of open wound to include skin, subcutaneous tissue, portions of fat, fascia, muscle and bone. Volume in total was approximately 80 cm. 2. Application of VeraFlo wound VAC. SURGEON: Mary Willingham MD NAME PLATE STAMPING MACHINE OPERATOR: Geovanni Crowley. INTRAOPERATIVE COMPLICATIONS: None. SUMMARY OF PATHOLOGIC FINDINGS: The patient was indeed found to have exposed lateral proximal body of the rest mod hip system. Tracking did go approximately 3.5 cm from the proximal aspect. Overall, wound dimensions were 4 x 3 x 3 with tracking as described above. 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 He has enjoyed approximately 4 years without any type of infection; however, recently, he came back with a small area of infection. This was treated locally. After a long conversation, the patient wishes to keep this suppressed whether then undergo another operation at this time. Attempts getting this wound to close have failed. We have discussed the possibility for the VeraFlo wound VAC to try and further eliminate infection, get this closed and let him continue suppression as long as possible. These were his wishes and had been agreed upon. OPERATIVE SUMMARY IN DETAIL: After obtaining the appropriate preoperative orthopedic surgery consent as well as anesthetic consultation, evaluation and clearance, the patient was brought to the operating room and placed on the operating table in supine position. After general laryngeal mask airway was administered, the patient was placed in a right lateral decubitus position. All pressure points well padded to include down leg peroneal pad as well as axillary roll. The patient was held firmly to the operating table using the VAC suction system. The patient's wound was again evaluated. A combination of curettage, rongeur as well as scalpel utilization were used to gently open up the incisions where the undermining had taken place and curettage was used in the superior OPERATIVE REPORT [id number] KHANGIORGI SUAREZ undermining area. Cultures were taken. Further curettage as well as rongeur was used to remove any nonviable appearing tissue. Copious irrigation was then followed by placement of the VeraFlo with the multi-hole sponge down deep followed by the 2 sponges on top. At this point, Adapt Paste was used circumferentially approximately 3 mm off the skin edge for good sealant. The wound was checked. After the good suction was applied, the Vera Vac wound bowel was set up for 0.25% Dakin solution on an 8 minute soak for 4-hour suction. Wound care nurse was present and a plan was made at that time. The patient was then awakened and taken to the recovery room in stable condition. All final needle and sponge counts were correct. TRANSINT:[id number] Voice Confirmation ID: [id number] DOCUMENT ID: [id number] MALUIK REINA, MARY ALMEIDA at 1500 CC: [id number] DICTATION DATE: 05/06/19 0848 DRAWBRIDGE TENDER: 05/06/19 1038 ADM IN [facility] [address] [place] [id number]
--- NOTE | 2019-05-06 17:35 | NUR ---
FAMILY IN ROOM MOST OF DAY. PT IS WITHOUT DISTRESS.MONITOR
[2019-05-06 17:44] VITALS: BP 103/45
--- NOTE | 2019-05-06 20:00 | NUR ---
ASSESSMENT PER FLOWSHEET. DRSG TO LEFT HIP C/D/I WITH VERAFLOW WOUND VAC IN PLACE. IV PATENT LEFT HAND OF NS AT 50CC'S/HR SITE CLEAR. SR UP X2 CALL LIGHT WITHIN REACH. REFUSES SCD'S.
[2019-05-06 20:40] VITALS: BP 101/50
--- NOTE | 2019-05-06 21:45 | NUR ---
MEDS GIVEN PER MAR. DENIES NEEDS.
--- NOTE | 2019-05-07 | NUR ---
FEMALE FRIEND AT BEDSIDE. EYES CLOSED RESPIRATIONS WITH EASE AND UNLABORED. DNIES NEEDS. VOIDS WELL IN URINAL.
[2019-05-07 00:51] VITALS: BP 95/54
--- NOTE | 2019-05-07 03:28 | NUR ---
C/O PAIN INCISIONAL AREA RATES PAIN #7-8. PERCOCET 10MG TAB ONE PO GIVEN FOR PAIN CONTROL.
[2019-05-07 04:48] VITALS: BP 101/50
--- NOTE | 2019-05-07 08:00 | NUR ---
ASSESSMENT PER FLOW SHEET.PT IS WITHOUT NEEDS.CALL LIGHT IN REACH
[2019-05-07 08:50] VITALS: BP 104/44
[2019-05-07 12:24] VITALS: BP 102/64
--- NOTE | 2019-05-07 12:30 | NUR ---
PT IS WITHOUT DISTRESS. WOUND VAC HAS BEEN CHANGED BY EDSON WITH WOUND CARE.MONITOR
--- NOTE | 2019-05-07 13:50 | NUR ---
WOUND VAC DRESSING CHANGE DATE: 05/07/19 WOUND LOCATION: left hip WOUND MEASUREMENTS: 5.5cm x 2cm x 3.2cm x 1cm @ 11 oclock WOUND DESCRIPTION: red MUSCLE, TENDON, OR BONE EXPOSED? no DRAINAGE AMOUNT/DESCRIPTION: mod bloody ODOR? no TYPE OF SPONGE USED AND AMOUNT: Cleanse choice: 1 on wound bed, 2 pieces for filler and 1 piece for TRAC pad SETTINGS: -125mmhg mod continuous with instillation of dakins 1/4 strength (20cc) q 3.5 hours (soak time 10 minutes) TEACHING: Wound vac and healing process Pt tolerated well. vac serial: [id number]
--- NOTE | 2019-05-07 14:42 | NUR ---
FAMILY TO VISIT.PT REMAINS WITHOUT CHANGE.
[2019-05-07] MEDS ORDERED: HYDROCODON-ACE1 EA10 PO (14:47)
[2019-05-07 18:20] VITALS: BP 108/60
--- NOTE | 2019-05-07 20:00 | NUR ---
ASSESSMENT PER FLOWSHEET. DRSG/WOUND VAC TO LEFT HIP INCISION. C/D/I. IV PATTENT LEFT HAND OF NS AT 25CC'S/HR. SITE CLEAR. SR UP X2 CALL LIGHT WITHIN REACH. DENIES NEEDS.
--- NOTE | 2019-05-07 21:00 | NUR ---
MEDS GIVEN PER MAR.
[2019-05-07 21:14] VITALS: BP 102/59
--- NOTE | 2019-05-08 00:13 | NUR ---
C/O INCISIONAL PAIN RATES PAIN LEVEL #8. TORADOL 30MG IVP GIVEN FOR PAIN CONTROL.
--- NOTE | 2019-05-08 03:33 | NUR ---
EYES CLOSED RESPIRATIONS WITH EASE AND UNLABORED.
[2019-05-08 04:55] VITALS: BP 101/63
[2019-05-08 09:38] VITALS: BP 108/63
--- NOTE | 2019-05-08 11:38 | MORECARE ---
CASE MANAGEMENT DISCHARGE SUMMARY PATIENT: MARVEL KHAN UNIT: [id number] ADM DATE: 05/06/19 AGE: 34 : 81 SEX: M ROOM/BED: D.2220 AUTHOR: RONALD MONTES PHYSICIAN: REFERRING PHYSICIAN: MARY WILLINGHAM MD DATE OF SERVICE: 05/08/19 Discharge Plan Patient Name: MARVEL KHAN Facility: [facility]:[place] : 1985 Planned Disposition: Anticipated Discharge Date: Discharge Date: Expected LOS: Initial Reviewer: [email or web address] Initial Review Date: 05/06/2019 Generated: 05/08/19 12:38 pm Comments DCP- Discharge Planning Updated by [id number]: Shivani Ruff on 05/08/19 10:[address] ORDER FOR [facility] WAS SENT YESTERDAY 05/07/19 WE ARE PENDING AUTH FOR WOUND VAC. I SPOKE WITH THE PATIENT AND HE WANTED [facility]. I HAVE SENT THE REFERRAL TO THEM. I CALLED HITESH WITH [employer] TO SEE IF SHE COULD SPEED UP THE PROCESS TO GET WOUND VAC APPROVED. SHE WILL CALL ME BACK AFTER LOOKING INTO External Providers External Provider: [facility] Next Contact Date: Service Request Date: Service Type: Resolution: Reviewer: Comments: External Provider: [facility] Next Contact Date: Service Request Date: Service Type: Resolution: Reviewer: Comments: Patient Name: MARVEL KHAN Page [phone] at 1138 All edits/amendments must be made on the electronic document DICTATION DATE: 05/08/19 1138 INFORMATION DIRECTOR: ADELA 05/08/19 1138 RPT#: [id number] DC DATE: STATUS: ADM IN [facility] [address] [place] [address] END OF REPORT
--- NOTE | 2019-05-08 15:01 | MORECARE ---
CASE MANAGEMENT DISCHARGE SUMMARY PATIENT: MARVEL KHAN UNIT: [id number] ADM DATE: 05/06/19 AGE: 34 : 81 SEX: M ROOM/BED: D.2220 AUTHOR: RONALD MONTES PHYSICIAN: REFERRING PHYSICIAN: MARY WILLINGHAM MD DATE OF SERVICE: 05/08/19 Discharge Plan Patient Name: MARVEL KHAN Facility: [facility]:[place] : 1985 Planned Disposition: Home Health Service Anticipated Discharge Date: Discharge Date: Expected LOS: Initial Reviewer: [email or web address] Initial Review Date: 05/06/2019 Generated: 05/08/19 4:01 pm Comments DCP- Discharge Planning Updated by [email or web address]: Shivani Ruff on 05/08/19 10:[address] ORDER FOR [facility] WAS SENT YESTERDAY 05/07/19 WE ARE PENDING AUTH FOR WOUND VAC. I SPOKE WITH THE PATIENT AND HE WANTED [facility]. I HAVE SENT THE REFERRAL TO THEM. I CALLED HITESH WITH [employer] TO SEE IF SHE COULD SPEED UP THE PROCESS TO GET WOUND VAC APPROVED. SHE WILL CALL ME BACK AFTER LOOKING INTO Last DP export: 05/08/19 10:38 a Patient Name: MARVEL KHAN Page 12346 at 1501 All edits/amendments must be made on the electronic document DICTATION DATE: 05/08/19 1500 TECHNICIAN ASSISTANT: ADELA 05/08/19 1500 RPT#: [id number] DC DATE: STATUS: ADM IN [facility] [address] [place] [address] END OF REPORT
--- NOTE | 2019-05-08 15:11 | MORECARE ---
CASE MANAGEMENT DISCHARGE SUMMARY PATIENT: MARVEL KHAN UNIT: [id number] ADM DATE: 05/06/19 AGE: 34 : 81 SEX: M ROOM/BED: D.2220 AUTHOR: SIMON,DOC PHYSICIAN: REFERRING PHYSICIAN: MARY WILLINGHAM MD DATE OF SERVICE: 05/08/19 Discharge Plan Patient Name: MARVEL KHAN Facility: [facility]:[place] : 1985 Planned Disposition: Home Health Service Anticipated Discharge Date: Discharge Date: Expected LOS: Initial Reviewer: [email or web address] Initial Review Date: 05/06/2019 Generated: 05/08/19 4:11 pm Comments DCP- Discharge Planning Updated by [id number]: Shivani Ruff on 05/08/19 2:[address] Patient Name: MARVEL KHAN Admission Status: Elective Accout number: [id number] Admission Date: 05-06-2019 : 1985 Admission Diagnosis: Attending: MARY WILLINGHAM Current LOS: 2 Anticipated DC Date: Planned Disposition: Home Health Service Primary Insurance: [place] PRIVATE OPTIONS [facility] Discharge Planning Comments: CM met with patient to complete initial dc planning assessment. CM educated patient on the CM role and verbal consent given by patient to complete assessment. Patient lives at home where he is independent with his care. At discharge patient plans to return home and feels this is a safe discharge. 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 CM discussed availability of home health, rehab services, and medical equipment. He will be discharging home with [facility] home wound vac and home health with [place]. YIMI signed and placed in chart . I have already faxed clinicals to [facility] and they will accept the patient. Patient denied known discharge needs at this time. CM will continue to follow and will assist as needed with dc plans/needs. Brusher And Shearer: Shivani Ruff DCP- Discharge Planning Updated by [id number]: Shivani Ruff on 05/08/19 10:[address] ORDER FOR [facility] WAS SENT YESTERDAY 05/07/19 WE ARE PENDING AUTH FOR WOUND VAC. I SPOKE WITH THE PATIENT AND HE WANTED [facility]. I HAVE SENT THE REFERRAL TO THEM. I CALLED HITESH WITH [employer] TO SEE IF SHE COULD SPEED UP THE PROCESS TO GET WOUND VAC APPROVED. SHE WILL CALL ME BACK AFTER LOOKING INTO DCPIA - Discharge Planning Initial Assessment Updated by [email or web address]: Shivani Ruff on 05/08/19 3:02 pm * Is the patient Alert and Oriented? Yes * How many steps to enter\exit or inside your home? * PCP ILANA * Pharmacy [facility] [address] * Preadmission Environment Home with Family * ADLs Independent * Equipment None * List name and contact numbers for known caregivers / representatives who currently or will assist patient after discharge: ARUN RAMIREZ [phone] * Verbal permission to speak to the caregivers and representatives has been obtained from the patient. N/A * Community resources currently utilized None * Additional services required to return to the preadmission environment? Yes * Can the patient safely return to the preadmission environment? Yes * Has this patient been hospitalized within the prior 30 days at any hospital? No Coverage Notice Reviewer: [id number] - Shivani Ruff Notice Issued Date-Time: 05/08/2019 14:45 Notice Type: Patient Choice Letter Notice Delivered To: Patient Relationship to Patient: Insurance Investigator Name: Delivery Method: - Ashley Days: Prior Verbal Notification: Recipient Understood Notice: Yes Recipient Signature: Yes Med Rec Note Co-signed by Attending: Coverage Notice Comment: Last DP export: 05/08/19 2:01 p Patient Name: MARVEL KHAN Page [id number] at 1511 All edits/amendments must be made on the electronic document DICTATION DATE: 05/08/191510 INSURANCE OPERATIONS REP: ADELA 05/08/191510 RPT#: [id number] DC DATE: STATUS: ADM IN [facility] [address] [place] [address] END OF REPORT
--- NOTE | 2019-05-08 15:38 | MORECARE ---
CASE MANAGEMENT DISCHARGE SUMMARY PATIENT: MARVEL KHAN UNIT: [id number] ADM DATE: 05/06/19 AGE: 34 : 81 SEX: M ROOM/BED: D.2220 AUTHOR: SIMON,DOC PHYSICIAN: REFERRING PHYSICIAN: MARY WILLINGHAM MD DATE OF SERVICE: 05/08/19 Discharge Plan Patient Name: MARVEL KHAN Facility: [facility]:[place] : 1985 Planned Disposition: Home Health Service Anticipated Discharge Date: Discharge Date: Expected LOS: Initial Reviewer: [email or web address] Initial Review Date: 05/06/2019 Generated: 05/08/19 4:38 pm Comments DCP- Discharge Planning Updated by [email or web address]: Shaneka Mcneil on 05/08/19 2:[address] Discharging home today. I faxed signed [facility] form to [facility] and called Martha in [employer] for Wound Vac. I faxed discharge orders to [facility]. Home today with home health. CM will continue to follow and assist with discharge planning/needs. DCP- Discharge Planning Updated by [email or web address]: Shivani Ruff on 05/08/19 2:[address] Patient Name: MARVEL KHAN Admission Status: Elective Accout number: [id number] Admission Date: 05-06-2019 : 1985 Admission Diagnosis: Attending: MARY WILLINGHAM Current LOS: 2 Anticipated DC Date: Planned Disposition: Home Health Service Primary Insurance: [facility] PRIVATE OPTIONS [facility] Discharge Planning Comments: CM met with patient to complete initial dc planning assessment. CM educated patient on the CM role and verbal consent given by patient to complete assessment. Patient lives at home where he is independent with his care. At discharge patient plans to return home and feels this is a safe discharge. Either his mom or aunt will be his helper driver home. CM discussed availability of home health, rehab services, and medical equipment. He will be discharging home with [facility] home wound vac and home health with [place]. YIMI signed and placed in chart . I have already faxed clinicals to [facility] and they will accept the patient. Patient denied known discharge needs at this time. CM will continue to follow and will assist as needed with dc plans/needs. Extended Insurance Clerk: Shivani Ruff DCP- Discharge Planning Updated by [email or web address]: Shivani Ruff on 05/08/19 10:[address] ORDER FOR [facility] WAS SENT YESTERDAY 05/07/19 WE ARE PENDING AUTH FOR WOUND VAC. I SPOKE WITH THE PATIENT AND HE WANTED [facility]. I HAVE SENT THE REFERRAL TO THEM. I CALLED HITESH WITH [employer] TO SEE IF SHE COULD SPEED UP THE PROCESS TO GET WOUND VAC APPROVED. SHE WILL CALL ME BACK AFTER LOOKING INTO DCPIA - Discharge Planning Initial Assessment Updated by [email or web address]: Shivani Ruff on 05/08/19 3:02 pm * Is the patient Alert and Oriented? Yes * How many steps to enter\exit or inside your home? * PCP ILANA * Pharmacy [facility] [place] * Preadmission Environment Home with Family * ADLs Independent * Equipment None * List name and contact numbers for known caregivers / representatives who currently or will assist patient after discharge: ARUN RAMIREZ [phone] * Verbal permission to speak to the caregivers and representatives has been obtained from the patient. N/A * Community resources currently utilized None * Additional services required to return to the preadmission environment? Yes * Can the patient safely return to the preadmission environment? Yes * Has this patient been hospitalized within the prior 30 days at any hospital? No Coverage Notice Reviewer: [id number] - Shivani Ruff Notice Issued Date-Time: 05/08/2019 14:45 Notice Type: Patient Choice Letter Notice Delivered To: Patient Relationship to Patient: Boiler Welder Name: Delivery Method: - Ashley Days: Prior Verbal Notification: Recipient Understood Notice: Yes Recipient Signature: Yes Med Rec Note Co-signed by Attending: Coverage Notice Comment: Last DP export: 05/08/19 2:11 p Patient Name: MARVEL KHAN Page [phone] at 1538 All edits/amendments must be made on the electronic document DICTATION DATE: 05/08/191536 ADULT EDUCATION TEACHER: ADELA 05/08/191536 RPT#: [id number] DC DATE: STATUS: ADM IN [facility] [address] [place] [address] END OF REPORT
--- NOTE | 2019-05-12 08:44 | MORECARE ---
CASE MANAGEMENT DISCHARGE SUMMARY PATIENT: MARVEL KHAN UNIT: [id number] ADM DATE: 05/05/19 AGE: 34 : 81 SEX: M ROOM/BED: D.2220 AUTHOR: SIMON,DOC PHYSICIAN: REFERRING PHYSICIAN: MARY WILLINGHAM MD DATE OF SERVICE: 05/12/19 Discharge Plan Patient Name: MARVEL KHAN Facility: [facility]:[place] : 1985 Planned Disposition: Home Health Service Anticipated Discharge Date: Discharge Date: 05/08/2019 Expected LOS: Initial Reviewer: [email or web address] Initial Review Date: 05/06/2019 Generated: 05/12/19 9:44 am Comments DCP- Discharge Planning Updated by [email or web address]: Shaneka Mcneil on 05/08/19 2:[address] Discharging home today. I faxed signed [facility] form to [facility] and called Martha in [employer] for Wound Vac. I faxed discharge orders to [facility]. Home today with home health. CM will continue to follow and assist with discharge planning/needs. DCP- Discharge Planning Updated by [email or web address]: Shivani Ruff on 05/08/19 2:[address] Patient Name: MARVEL KHAN Admission Status: Elective Accout number: [id number] Admission Date: 05-06-2019 : 1985 Admission Diagnosis: Attending: MARY WILLINGHAM Current LOS: 2 Anticipated DC Date: Planned Disposition: Home Health Service Primary Insurance: [facility] PRIVATE OPTIONS [facility] Discharge Planning Comments: CM met with patient to complete initial dc planning assessment. CM educated patient on the CM role and verbal consent given by patient to complete assessment. Patient lives at home where he is independent with his care. At discharge patient plans to return home and feels this is a safe discharge. 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 CM discussed availability of home health, rehab services, and medical equipment. He will be discharging home with [facility] home wound vac and home health with [place]. YIMI signed and placed in chart . I have already faxed clinicals to [facility] and they will accept the patient. Patient denied known discharge needs at this time. CM will continue to follow and will assist as needed with dc plans/needs. Sheet Metal Lay Out Worker: Shivani Ruff DCP- Discharge Planning Updated by [email or web address]: Shivani Ruff on 05/08/19 10:[address] ORDER FOR [facility] WAS SENT YESTERDAY 05/07/19 WE ARE PENDING AUTH FOR WOUND VAC. I SPOKE WITH THE PATIENT AND HE WANTED [facility]. I HAVE SENT THE REFERRAL TO THEM. I CALLED HITESH WITH [employer] TO SEE IF SHE COULD SPEED UP THE PROCESS TO GET WOUND VAC APPROVED. SHE WILL CALL ME BACK AFTER LOOKING INTO DCPIA - Discharge Planning Initial Assessment Updated by [email or web address]: Shivani Ruff on 05/08/19 3:02 pm * Is the patient Alert and Oriented? Yes * How many steps to enter\exit or inside your home? * PCP ILANA * Pharmacy [facility] ON [address] * Preadmission Environment Home with Family * ADLs Independent * Equipment None * List name and contact numbers for known caregivers / representatives who currently or will assist patient after discharge: ARUN RAMIREZ [phone] * Verbal permission to speak to the caregivers and representatives has been obtained from the patient. N/A * Community resources currently utilized None * Additional services required to return to the preadmission environment? Yes * Can the patient safely return to the preadmission environment? Yes * Has this patient been hospitalized within the prior 30 days at any hospital? No Coverage Notice Reviewer: [id number] - Shivani Ruff Notice Issued Date-Time: 05/08/2019 14:45 Notice Type: Patient Choice Letter Notice Delivered To: Patient Relationship to Patient: Rn Assessment Name: Delivery Method: - Ashley Days: Prior Verbal Notification: Recipient Understood Notice: Yes Recipient Signature: Yes Med Rec Note Co-signed by Attending: Coverage Notice Comment: Last DP export: 05/08/19 2:38 p Patient Name: MARVEL KHAN Page [phone] at 0844 All edits/amendments must be made on the electronic document DICTATION DATE: 05/12/1944 CNC MANUFACTURING ENGINEER: ADELA 05/12/19 0844 RPT#: [id number] DC DATE:05/08/19 STATUS: DIS IN [facility] [address] [place] [address] END OF REPORT
== END 2019-05-08 16:32 | disposition home health service (06) | DRG 481 ==
LOC: D.OPS 10:25 → D.MS 16:41 → D.PAN 16:45 → D.OPS 16:45 → D.MS 17:18 → D.OPS 05-06 07:16 → D.MS 05-06 07:52
PROVIDERS: Anesthesiology; ADMIT Orthopaedic Surgery; ATTEND Orthopaedic Surgery
PROC: 0SBB0ZZ Excision of Left Hip Joint, Open Approach (ICD-10-PCS; principal; 2019-05-05 12:30)
DX: T84.52XA Infection and inflammatory reaction due to internal left hip prosthesis, initial encounter (principal); M87.852 Other osteonecrosis, left femur; Y83.9 Surgical procedure, unspecified as the cause of abnormal reaction of the patient, or of later complication, without mention of misadventure at the time of the procedure; D57.1 Sickle-cell disease without crisis; I10 Essential (primary) hypertension

== ENCOUNTER 2019-07-14 06:38 | Day surgery (SDC) | payer BC ==
[~2019-07-14] VITALS: Ht 180.3 cm; Wt 81.6 kg
[2019-07-14 07:31] VITALS: BP 112/71; Ht 180.3 cm; Wt 81.6 kg
--- NOTE | 2019-07-14 11:30 | NUR ---
PLASMA BLADE SET TO 6/8 BOVIE PAD RIGHT THIGH [id number] EXP 12/12/2020
[2019-07-14] MEDS ORDERED: HYDROCODON-ACE1 EA10 PO (12:19)
--- NOTE | 2019-07-17 09:56 | OP ---
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 PROCEDURE: 1. Excisional debridement of skin, subcutaneous tissue, portions of fat, fascia, muscle, and curettage of above. 2. Mobilization of the muscle flap for closure. 3. Placement of multiple antibiotic beads/dissolvable. SURGEON: Mary Willingham MD LEAD CYTOGENETIC TECHNOLOGIST: Geovanni Crowley APN INTRAOPERATIVE COMPLICATIONS: None. SUMMARY OF PATHOLOGIC FINDINGS: The patient did appear to have a very low level of infection in this wound that has not healed. It is basically epithelialized down to the base and this is an attempt to close the wound and keep it closed and maintain him at the level of chronic suppression that he has a very young man with sickle cell disease and wants to go as long as he can on this hip before it has to be revised. This was discussed at length with the Mr. Khan preoperatively and this is his wish. OPERATIVE SUMMARY IN DETAIL: After obtaining the appropriate preoperative orthopedic surgery consent as well as an anesthetic consultation, evaluation and clearance, the patient was placed on the operating table in supine position. After general laryngeal mask airway was administered, the patient was placed in the right lateral decubitus position. All pressures points were well padded to include down leg peroneal pad as well as axillary roll. The patient was held firmly to the operating table using the vacuum pack suction system. Left lower extremity and hip were then prepped and draped in routine sterile fashion. Attention was first turned to excision of the entire tract. The entire tract was about 1.5 cm x 1.5 cm by approximately 5 cm. The elliptical incision of the entire tract was taken down to the lateral aspect of the prosthesis. This was basically taken back to "normal healthy tissue." At this point, dissection was carried up to the tip of the church modular system laterally. Dissection was carried into the hip capsule itself. Copious irrigation was done then followed by mobilization of the posterior lateral aspect of the lateral hamstrings to allow them to be simply brought over and close the wound; however, before this was done, entrance of both the hip capsule as well as all down the exposed hardware were treated with antibiotic beads. At this point, the depths of the mobilized muscle were reapproximated anteriorly using a #2 Vicryl. This resulted in complete coverage of the hardware. Further antibiotic beads were placed in the next layer, which was then closed by more 2-0 Vicryl. Ultimately, the skin was closed with a combination of #2 Prolene in a retention style suture and 2-0 Prolene in mattress style sutures. This resulted in excellent closure. Some bleeding was still occurring. The wound was dressed with a Prevena. OPERATIVE REPORT [id number] MARVEL HKAN Sterile dressings were applied. The patient was then awakened, taken to recovery room in stable condition. All final needle and sponge counts were correct. TRANSINT:[id number] Voice Confirmation ID: [id number] DOCUMENT ID: [id number] MAULIK REINA, MARY ALMEIDA at 0956 CC: [id number] DICTATION DATE: 07/15/19 1623 PRODUCTION CORRUGATOR: 07/15/19 1841 [facility] 07/14/19 [facility] [address] [place] [address]
== END 2019-07-14 15:15 | disposition home or self-care (01) ==
LOC: D.OPS 06:38 → D.PAN 13:45 → D.OPS 13:45
PROVIDERS: ATTEND Orthopaedic Surgery
DX: T84.52XA Infection and inflammatory reaction due to internal left hip prosthesis, initial encounter (principal); Z01.812 Encounter for preprocedural laboratory examination

== ENCOUNTER → 2019-08-13 16:19 | Outpatient (CLI) | payer BC ==
[2019-07-14 07:31] VITALS: BMI 25.1
== END | disposition home or self-care (01) ==
LOC: D.LABREF 16:19
PROVIDERS: ATTEND Orthopaedic Surgery
DX: L08.9 Local infection of the skin and subcutaneous tissue, unspecified (principal)

== ENCOUNTER → 2019-08-21 16:46 | Outpatient (CLI) | payer BC ==
[2019-07-14 07:31] VITALS: BMI 25.1
== END | disposition home or self-care (01) ==
LOC: D.LABREF 16:46
PROVIDERS: ATTEND Clinical Nurse Specialist Family Health
DX: M25.552 Pain in left hip (principal)